=== PATIENT | female | born 1980 | race Caucasian/White ===

== ENCOUNTER 2016-10-16 12:19 | Emergency (ER) | payer MEDICAID ==
[2016-10-16] MEDS ORDERED: ONDANSETRON HCL 4 MG/2 ML VIAL ONE (12:52)
[2016-10-16 12:59] LABS: BLOOD UREA NITROGEN 15 mg/dL (7-17); CHLORIDE 104 mmol/L (98-107); EST GLOMERULAR FILTRATION RATE > 60 mL/min; GLUCOSE 88 mg/dL (70-100); POTASSIUM 3.7 mmol/L (3.5-5.1); SODIUM 140 mmol/L (137-145)
[2016-10-16] MEDS ORDERED: KETOROLAC TROMETHAMINE 30 MG/ML VIAL ONE (13:55)
--- NOTE | 2016-10-16 14:13 | ER PHYSICIAN DOCUMENTATION ---
Physician Documentation [facility] Name:Yumi Allen Age:36 yrs Sex:Female :1980 Arrival Date:10/16/2016 Time:12:19 Bed1 Private MD: Colton Lindquist Disposition: 10/16/16 14:00 Discharged to Home/Self Care. Impression: Vomiting. - Condition is Good. - Discharge Instructions: VOMITING (5y-Adult). - Prescriptions for Zofran 4 mg Oral - take 1 tablet by ORAL route every 12 hours; 12 tablet. - Medical Reconciliation form form. - Follow up: Private Physician; When: As needed; Reason: Continuance of care. - Problem is new. - Symptoms have improved. HPI: 10/16 13:00 This 36 yrs old Female presents to ER via Private Vehicle with complaints of jm Vomiting. 13:00 The patient presents to the emergency department with nausea, with vomiting, without jm any complaints of abdominal pain. Onset: The symptom(s)/episode began/occurred yesterday, and became worse today. Possible causes: unknown. Associated signs and symptoms: Pertinent negatives: abdominal pain, dysuria. Severity of symptoms: in the emergency department the symptoms are unchanged. Pt here for dehydration and vomiting. . Historical: - Allergies: No known drug Allergies; - Home Meds: 1. None - PMHx: None; - PSHx: ; ECTOPIC ; - Tetanus: < 10 years. - Ebola Screening: : Patient negative for fever greater than or equal to 101.5 degrees Fahrenheit, and additional compatible Ebola Virus Disease symptoms. - Immunization history: Flu Vaccine unknown. - Social history: Smoking status: Patient states was never smoker of tobacco. ROS: 13:00 Constitutional: Positive for body aches. jm 13:00 Cardiovascular: Negative for chest pain. 13:00 Respiratory: Negative for cough. 13:00 Abdomen/GI: Positive for nausea, vomiting, Negative for abdominal pain. 13:00 Neuro: Positive for tingling, weakness. Exam: 13:00 Constitutional: The patient appears alert, awake. 13:00 Cardiovascular: Rate: normal, Rhythm: regular. 13:00 Abdomen/GI: Inspection: abdomen appears normal, Palpation: abdomen is soft and non-tender. Vital Signs: 12:43 BP 126 / 96; Pulse 95; Resp 17; Temp 99.1(O); Pulse Ox 96% on R/A; Weight 64.41 kg; rh Height 5 ft. 11 in. (180.34 cm); Pain 3/10; 14:12 BP 134 / 84; Pulse 88; Resp 16; Pulse Ox 96% on R/A; Pain 1/10; rh 12:43 Body Mass Index 19.80 (64.41 kg, 180.34 cm) MDM: 12:29 Patient medically screened. 14:00 Differential diagnosis: viral gastroenteritis. Data reviewed: vital signs, nurses jm notes, radiologic studies, and as a result, I will discharge patient. Counseling: I had a detailed discussion with the patient and/or guardian regarding: the historical points, exam findings, and any diagnostic results supporting the discharge/admit diagnosis, lab results, the need for outpatient follow up, with the patient's primary care provider. Response to treatment: the patient's symptoms have markedly improved after treatment. 10/16 13:01 Order name: BASIC METABOLIC PANEL; Complete Time: 13:38 [facility] 10/16 13:37 Order name: HCG, SERUM; Complete Time: 13:38 [facility] 10/16 12:31 Order name: Iv Saline Lock; Complete Time: 12:37 Dispensed Medications: 12:41 Drug: NS 0.9% 1000 ml; Route: IV; Rate: bolus; Site: right antecubital; rh 13:20 Follow up: IV Status: Completed infusion; IV Intake: 1000ml rh 12:41 Drug: Zofran 4 mg; Route: IVP; Infused Over: 2 mins; Site: right antecubital; rh 13:38 Follow up: Response: Nausea is decreased rh 13:38 Drug: NS 0.9% 1000 ml; Route: IV; Rate: bolus; Site: right antecubital; rh 14:05 Follow up: IV Status: Completed infusion; IV Intake: 1000ml rh 13:42 Drug: Toradol 30 mg; Route: IVP; Site: right antecubital; rh 14:13 Follow up: Response: No adverse reaction; Pain is decreased rh Signatures: Colton Lei MD MD jm Hofsess, Rachel rh
--- NOTE | 2016-10-16 14:13 | ER NURSING DOCUMENTATION ---
Nurse's Notes [facility] Name:Yumi Allen Age:36 yrs Sex:Female :1980 Arrival Date:10/16/2016 Time:12:19 Bed1 Private MD: Diagnosis:Vomiting Presentation: 10/16 12:22 Acuity: [place] 3 nf 12:51 Presenting complaint: Patient states: Pt drove here from [place] for 4 days, she was in rh an un-air conditioned car and did not drink a lot of fluids. Pt states that once she got here she was nauseated and dry heaving. C/O dehydration. Transition of care: Home. 12:51 Method Of Arrival: Private Vehicle Triage Assessment: 12:44 General: Appears in no apparent distress, Behavior is cooperative. Pain: Complains of rh pain in GENERALIZED BODY ACHES. EENT: Oral mucosa is dry. Neuro: Level of Consciousness is awake, alert, obeys commands, Oriented to person, place, time, event. Cardiovascular: Capillary refill < 3 seconds. Respiratory: Denies shortness of breath. GI: Reports cramping, nausea, vomiting. : No deficits noted. Derm: Skin is intact, is healthy with good turgor, Skin is pink, warm & dry. Musculoskeletal: Circulation, motion, and sensation intact. Historical: - Allergies: No known drug Allergies; - Home Meds: 1. None - PMHx: None; - PSHx: ; ECTOPIC ; - Tetanus: < 10 years. - Ebola Screening: : Patient negative for fever greater than or equal to 101.5 degrees Fahrenheit, and additional compatible Ebola Virus Disease symptoms. - Immunization history: Flu Vaccine unknown. - Social history: Smoking status: Patient states was never smoker of tobacco. Screenin:42 Infectious Disease Risk None. Abuse screen: Denies threats or abuse. Denies injuries rh from another. Nutritional screening: No deficits noted. Vital Signs: 12:43 BP 126 / 96; Pulse 95; Resp 17; Temp 99.1(O); Pulse Ox 96% on R/A; Weight 64.41 kg; rh Height 5 ft. 11 in. (180.34 cm); Pain 3/10; 14:12 BP 134 / 84; Pulse 88; Resp 16; Pulse Ox 96% on R/A; Pain 1/10; rh 12:43 Body Mass Index 19.80 (64.41 kg, 180.34 cm) rh ED Course: 12:20 Inserted peripheral IV: 20 gauge in right antecubital area and blood collected. rh 12:21 Patient arrived in ED. dp 12:22 Triage completed. nf 12:29 Colton Lei MD is Attending Physician. cyrus 12:42 Crissy Guadarrama is Primary Nurse. rh 12:42 Valuables Remains with patient Patient has correct armband on for positive rh identification. Bed in low position. Call light in reach. Side rails up X 1. 14:10 Assisted to bathroom. rh Administered Medications: 12:41 Drug: NS 0.9% 1000 ml; Route: IV; Rate: bolus; Site: right antecubital; rh 13:20 Follow up: IV Status: Completed infusion; IV Intake: 1000ml rh 12:41 Drug: Zofran 4 mg; Route: IVP; Infused Over: 2 mins; Site: right antecubital; rh 13:38 Follow up: Response: Nausea is decreased rh 13:38 Drug: NS 0.9% 1000 ml; Route: IV; Rate: bolus; Site: right antecubital; rh 14:05 Follow up: IV Status: Completed infusion; IV Intake: 1000ml rh 13:42 Drug: Toradol 30 mg; Route: IVP; Site: right antecubital; rh 14:13 Follow up: Response: No adverse reaction; Pain is decreased rh Intake: 13:20 IV: 1000ml; Total: 1000ml. rh 14:05 IV: 1000ml; Total: 2000ml. rh Outcome: 14:00 Discharge ordered by . cyrus 14:12 Discharged to home ambulatory. rh 14:12 Condition: improved 14:12 Discharge Assessment: Patient awake, alert and oriented x 3. No cognitive and/or functional deficits noted. Patient verbalized understanding of disposition instructions. Patient 14:12 Discharge instructions given to patient, Instructed on discharge instructions, follow up and referral plans. medication usage, Demonstrated understanding of instructions, medications, Prescriptions given X 1. 14:12 IV D/Landon 14:13 Patient left the ED. rh Signatures: Patricia Gómez RN RN Colton Mckeon MD MD jm Hofsess, Rachel rh Mindi Martinez dp
== END 2016-10-16 14:13 | disposition home or self-care (01) ==
LOC: ER 12:19
DX: E86.0 Dehydration (principal); R11.2 Nausea with vomiting, unspecified; R53.1 Weakness; R20.2 Paresthesia of skin
CPT/HCPCS: 80048; 84703; 96361; 96374; 96375; 99284; J1885; J2405

== ENCOUNTER 2016-10-25 10:25 | Emergency (ER) | payer MEDICAID ==
--- NOTE | 2016-10-25 10:44 | ER NURSING DOCUMENTATION ---
Nurse's Notes [facility] Name:Yumi Allen Age:36 yrs Sex:Female :1980 Arrival Date:10/25/2016 Time:10:25 Bed1 Private MD: Diagnosis:Cellulitis;Mosquito Bite Presentation: 10/25 10:32 Presenting complaint: Patient states: pt had a bug bit two days ago that is not swollen st and red. it both hurts and itches. Transition of care: Home. 10:32 Acuity: [place] 4 st 10:32 Method Of Arrival: Private Vehicle st Triage Assessment: 10:34 Bite description: bite sustained to posterior aspect of right lateral abdomen by an st unknown animal. General: Appears in no apparent distress, Behavior is cooperative. Pain: Complains of pain in posterior aspect of right lateral abdomen Pain currently is 3 out of 10 on a pain scale. Cardiovascular: No deficits noted. Respiratory: No deficits noted. GI: No deficits noted. Derm: Rash noted that is itchy, red, on posterior aspect of right lateral abdomen. Historical: - Allergies: No known drug Allergies; - Home Meds: 1. None - PMHx: None; None; - PSHx: ; eptopic ; - Tetanus: < 10 years. - Ebola Screening: : Patient denies exposure to infectious person. Patient denies travel to an Ebola-affected area in the 21 days before illness onset. . - Social history: Smoking status: Patient states was never smoker of tobacco. Patient/guardian denies using alcohol, marijuana. Screenin:35 Infectious Disease Risk None. Abuse screen: Denies threats or abuse. Denies injuries st from another. Nutritional screening: No deficits noted. Vital Signs: 10:35 BP 142 / 96; Pulse 89; Temp 98.2; Pulse Ox 96% on R/A; Pain 3/10; st ED Course: 10:27 Patient arrived in ED. ama 10:32 Nu Angel RN is Primary Nurse. st 10:[address] 10:34 Kimani Doan MD is Attending Physician. be 10:35 Valuables Remains with patient Patient has correct armband on for positive st identification. Bed in low position. Administered Medications: No medications were administered Outcome: 10:37 Discharge ordered by . be 10:43 Discharged to home ambulatory. st 10:43 Condition: stable 10:43 Discharge instructions given to patient, Instructed on discharge instructions, follow up and referral plans. medication usage, Prescriptions given X 2. 10:43 Patient left the ED. 10/26 09:35 Discharge F/U Call: Spoke with: patient. other: Name: pt is feeling better. Pt has no st questions or concerns. Signatures: Nu Angel RN RN st Elliott, Brian, MD MD be Averdick, Andrew, Zion Reg ama
--- NOTE | 2016-10-25 10:44 | ER PHYSICIAN DOCUMENTATION ---
Physician Documentation [facility] Name:Yumi Allen Age:36 yrs Sex:Female :1980 Arrival Date:10/25/2016 Time:10:25 Bed1 Private MD: Kimani Walker Disposition: 10/25/16 10:37 Discharged to Home/Self Care. Impression: Cellulitis, Mosquito Bite. - Condition is Good. - Discharge Instructions: CELLULITIS, INSECT STING/BITE, Infected. - Prescriptions for Augmentin 875- 125 mg Oral Tablet - take 1 tablet by ORAL route every 12 hours for 10 days; 20 tablet. Bactroban 2 % Topical - Apply to affected area 1 application by TOPICAL route 3 times per day; 15 gram. - Medical Reconciliation form form. - Follow up: Private Physician; When: As needed; Reason: Continuance of care. - Problem is new. - Symptoms are unchanged. Historical: - Allergies: No known drug Allergies; - Home Meds: 1. None - PMHx: None; None; - PSHx: ; eptopic ; - Tetanus: < 10 years. - Ebola Screening: : Patient denies exposure to infectious person. Patient denies travel to an Ebola-affected area in the 21 days before illness onset. . - Social history: Smoking status: Patient states was never smoker of tobacco. Patient/guardian denies using alcohol, marijuana. Vital Signs: 10/25 10:35 BP 142 / 96; Pulse 89; Temp 98.2; Pulse Ox 96% on R/A; Pain 3/10; st MDM: 10:34 Patient medically screened. be Dispensed Medications: No medications were administered Signatures: Nu Angel, RN Kimani Davis MD MD be
== END 2016-10-25 10:44 | disposition home or self-care (01) ==
LOC: ER 10:25
DX: S30.861A Insect bite (nonvenomous) of abdominal wall, initial encounter (principal); L03.311 Cellulitis of abdominal wall; W57.XXXA Bitten or stung by nonvenomous insect and other nonvenomous arthropods, initial encounter
CPT/HCPCS: 99281